=== PATIENT | female | born 1960 | race Caucasian/White ===

== ENCOUNTER 2016-09-19 13:40 | Emergency (ER) | payer OTHER ==
[~2016-09-19 13:40] MED LIST: BENADRYL PO; BENZONATATE PO; CLINDAMYCIN HC300 MG PO; FLEXERIL PO; FLEXERIL10 M1 PO; IBUPROFEN PO; LORTAB 7.5-5001 TAB PO; MEDROL DOSEPAK4 MG PO; MEDROL PO; MEDROL4 MG/DOSE- PO; NAPROSYN500 MG PO; PEN-VEE K PO; ULTRAM PO; VICODIN 5/500 T1 TAB PO; ZITHROMAX PO
== END 2016-09-19 13:55 | disposition home or self-care (01) ==
LOC: CFTX 13:40
DX: K04.7 Periapical abscess without sinus (principal); K08.89 Other specified disorders of teeth and supporting structures
CPT/HCPCS: 99282

== ENCOUNTER 2017-01-17 12:24 | Emergency (ER) | payer OTHER ==
[~2017-01-17] VITALS: Ht 160 cm; Wt 63.5 kg
== END 2017-01-17 14:25 | disposition home or self-care (01) ==
LOC: CED 12:24 → CFTX 12:24
DX: K04.7 Periapical abscess without sinus (principal); K02.9 Dental caries, unspecified; F17.210 Nicotine dependence, cigarettes, uncomplicated
CPT/HCPCS: 99283